=== PATIENT | female | born 1970 | race Caucasian/White ===

== ENCOUNTER 2018-11-27 09:34 | Emergency (ER) | payer BC ==
[2018-11-27] MEDS ORDERED: Sodium Chloride 0.9% 10 ML Syringe FLUSH PRN (09:50)
[2018-11-27] MEDS ORDERED: Pantoprazole 40 MG Vial IVPUSH ONE (10:09)
--- NOTE | 2018-11-27 10:16 | EDM.PDOC ---
ED HPI GENERAL MEDICAL PROBLEM - General Chief Complaint: Gastrointestinal Problem Stated Complaint: RECTAL BLEEDING BLOODY STOOLS Time Seen by Provider: 11/27/18 09:56 Source of Information: Reports: Patient History Limitations: Reports: No Limitations - History of Present Illness INITIAL COMMENTS - FREE TEXT/NARRATIVE: Patient is a 48-year-old female presents ED complaining of rectal bleeding with periumbilical abdominal pain with cramping that waxes and wanes in intensity. Started this last evening approximately 11:00. She's had approximately 8 bloody BMs since. Blood is bright red. She has a history of gastric sleeve 2 years ago that took place in [facility]. She had no postoperative complications. Has reported increased acid reflux as of recent and takes Tums usually. She's never had EGD. She had a colonoscopy several months ago which came back positive for 1 small polyp. Otherwise she has no history of ulcerative colitis, Crohn's disease, diverticuli/diverticulitis, or bleeding from her rectum in the past. She has ingested no questional or bad food. There's been no recent out of country travel. [place] not live on a farm and drink well water. She has not been around anybody sick with similar symptoms. There is no nausea/vomiting, fever, dyspnea, shortness of breath, dysuria, and/or any additional complaints. Bilateral Abdominal Pain Score (Numeric/FACES): 7 - Related Data Allergies Allergy/AdvReac Type Severity Reaction Status Date / Time No Known Allergies Allergy Verified 11/27/18 09:50 Home Meds: Home Meds Estrogens, Conjugated [Premarin] 0.9 mg PO DAILY 11/27/18 [History] Olmesartan/Amlodipin/Hcthiazid [Gbfwohp-[id number]-Nlbq 40-10-25Mg] 1 tab PO DAILY 11/27/18 [History] Propranolol [Inderal LA] 80 mg PO DAILY 11/27/18 [History] ZOLMitriptan [Zomig] 5 mg PO DAILY 11/27/18 [History] tiZANidine [Zanaflex] 4 mg PO DAILY 11/27/18 [History] traZODone HCl [Trazodone HCl] 100 mg PO DAILY 11/27/18 [History] Past Medical History Cardiovascular History: Reports: Hypertension Psychiatric History: Reports: Depression - Past Surgical History GI Surgical History: Reports: Other (See Below) Other GI Surgeries/Procedures: gastric sleeve Female Surgical History: Reports: Hysterectomy, Other (See Below) Other Female Surgeries/Procedures: laproscopic for endometriosis Social & Family History - Tobacco Use Smoking Status *Q: Current Some Day Smoker Years of Tobacco use: 1 Packs/Tins Daily: 0.1 - Caffeine Use Caffeine Use: Reports: None - Recreational Drug Use Recreational Drug Use: No ED ROS GENERAL - Review of Systems Review Of Systems: ROS reveals no pertinent complaints other than HPI. ED EXAM, GI/ABD - Physical Exam Exam: See Below Exam Limited By: No Limitations General Appearance: Alert, WD/WN, No Apparent Distress Ears: Hearing Grossly Normal Nose: Normal Inspection Throat/Mouth: Normal Voice, No Airway Compromise Head: Atraumatic, Normocephalic Neck: Normal Inspection, Supple Respiratory/Chest: No Respiratory Distress, Lungs Clear, Normal Breath Sounds, No Accessory Muscle Use, Chest Non-Tender Cardiovascular: Normal Peripheral Pulses, Regular Rate, Rhythm GI/Abdominal Exam: Normal Bowel Sounds, Soft, Non-Tender, No Organomegaly, No Distention Rectal (Female) Exam: Hemorrhoids (4 large external hemorrhoids. non thrombosed. unable to perform tad due to pressure. ) Extremities: Normal Inspection Neurological: Alert, Oriented, CN II-XII Intact, Normal Cognition Psychiatric: Normal Affect, Normal Mood Skin Exam: Warm, Dry, Intact, Normal Color Course - Vital Signs Last Recorded V/S: Last Vital Signs Temp 97.7 F 11/27/18 09:46 Pulse 65 11/27/18 09:46 Resp 16 11/27/18 09:46 BP 128/79 11/27/18 09:46 Pulse Ox 98 11/27/18 09:46 Orthostatic Blood Pressure [ 117/70 Standing] Orthostatic Blood Pressure [ 115/73 Sitting] Orthostatic Blood Pressure [ 122/70 Supine] - Orders/Labs/Meds Orders: Active Orders 24 hr Category Date Time Status Peripheral IV Care [RC] . DIRECTED Care 11/27/18 09:50 Active PATIENT RETYPE [BBK] Routine Lab 11/27/18 11:12 Ordered UA W/MICROSCOPIC [URIN] Stat Lab 11/27/18 09:49 Ordered Peripheral IV Insertion Adult [OM.PC] Routine Oth 11/27/18 09:50 Ordered Labs: Laboratory Tests 11/27/18 11/27/18 11/27/18 Range/Units 10:25 10:25 10:25 WBC 11.92 H (3.98-10.04) K/mm3 RBC 4.91 (3.98-5.22) M/mm3 Hgb 14.4 (11.2-15.7) gm/L Hct 43.1 (34.1-44.9) % MCV 87.8 (79.4-94.8) fl MCH 29.3 (25.6-32.2) pg MCHC 33.4 (32.2-35.5) g/dl RDW Std Deviation 41.1 (36.4-46.3) fL Plt Count 236 (182-369) K/mm3 MPV 9.5 (9.4-12.3) fl Neutrophils % (Manual) 73 H (40-60) % Band Neutrophils % 0 (0-10) % Lymphocytes % (Manual) 22 (20-40) % Atypical Lymphs % 0 % Monocytes % (Manual) 2 (2-10) % Eosinophils % (Manual) 2 (0.7-5.8) % Basophils % (Manual) 1 (0.1-1.2) Toxic Granulation See note Platelet Estimate Adequate Plt Morphology Comment Normal RBC Morph Comment Normal PT 10.5 (9.5-12.1) SECONDS INR 0.96 APTT 27 (24-31) SECONDS Sodium 140 (136-145) mEq/L Potassium 3.5 (3.5-5.1) mEq/L Chloride 101 (98-107) mEq/L Carbon Dioxide 29 (21-32) mEq/L Anion Gap 13.5 (5-15) BUN 19 H (7-18) mg/dL Creatinine 0.8 (0.55-1.02) mg/dL Est Cr Clr Drug Dosing 63.12 mL/min Estimated GFR (MDRD) > 60 (>60) mL/min BUN/Creatinine Ratio 23.8 H (14-18) Glucose 104 (74-106) mg/dL Calcium 9.2 (8.5-10.1) mg/dL Total Bilirubin 0.4 (0.2-1.0) mg/dL AST 20 (15-37) U/L ALT 27 (14-59) U/L Alkaline Phosphatase 81 (46-116) U/L C-Reactive Protein 0.6 (<1.0) mg/dL Total Protein 7.5 (6.4-8.2) g/dl Albumin 4.1 (3.4-5.0) g/dl Globulin 3.4 gm/dL Albumin/Globulin Ratio 1.2 (1-2) Lipase 112 (73-393) U/L Blood Type Gel Antibody Screen 11/27/18 Range/Units 10:25 WBC (3.98-10.04) K/mm3 RBC (3.98-5.22) M/mm3 Hgb (11.2-15.7) gm/L Hct (34.1-44.9) % MCV (79.4-94.8) fl MCH (25.6-32.2) pg MCHC (32.2-35.5) g/dl RDW Std Deviation (36.4-46.3) fL Plt Count (182-369) K/mm3 MPV (9.4-12.3) fl Neutrophils % (Manual) (40-60) % Band Neutrophils % (0-10) % Lymphocytes % (Manual) (20-40) % Atypical Lymphs % % Monocytes % (Manual) (2-10) % Eosinophils % (Manual) (0.7-5.8) % Basophils % (Manual) (0.1-1.2) Toxic Granulation Platelet Estimate Plt Morphology Comment RBC Morph Comment PT (9.5-12.1) SECONDS INR APTT (24-31) SECONDS Sodium (136-145) mEq/L Potassium (3.5-5.1) mEq/L Chloride (98-107) mEq/L Carbon Dioxide (21-32) mEq/L Anion Gap (5-15) BUN (7-18) mg/dL Creatinine (0.55-1.02) mg/dL Est Cr Clr Drug Dosing mL/min Estimated GFR (MDRD) (>60) mL/min BUN/Creatinine Ratio (14-18) Glucose (74-106) mg/dL Calcium (8.5-10.1) mg/dL Total Bilirubin (0.2-1.0) mg/dL AST (15-37) U/L ALT (14-59) U/L Alkaline Phosphatase (46-116) U/L C-Reactive Protein (<1.0) mg/dL Total Protein (6.4-8.2) g/dl Albumin (3.4-5.0) g/dl Globulin gm/dL Albumin/Globulin Ratio (1-2) Lipase (73-393) U/L Blood Type O POSITIVE Gel Antibody Screen Negative Meds: Medications Discontinued Medications Generic Name Dose Route Start Last Admin Trade Name Freq PRN Reason Stop Dose Admin Sodium Chloride 1,000 mls @ 250 mls/hr 11/27/18 10:30 11/27/18 10:33 Normal Saline IV 250 mls/hr ASDIRECTED RYAN Administration Pantoprazole Sodium 80 mg 11/27/18 10:09 11/27/18 10:36 Protonix Iv IVPUSH 11/27/18 10:10 80 mg BOLUS ONE Administration Sodium Chloride 10 ml 11/27/18 09:50 11/27/18 10:36 Saline Flush FLUSH 10 ml ASDIRECTED PRN Administration Keep Vein Open - Re-Assessments/Exams Free Text/Narrative Re-Assessment/Exam: IV established with NS 250mls/hr and protonix 80 mg IVP. Initial labs and studies will include: CBC, C14, CRP, LIPASE, Coag Studies, Type and screen, and UA. Stool WBC ordered. Discharge vital signs were obtained by nursing staff came back negative. On digital rectal exam patient has 4 large external hemorrhoids that are nonpainful. Nonthrombosed. Unable to perform the digital rectal exam due to pressure. If the patient has a bowel movement we will test for blood at that time. If blood present stool cultures will be obtained. Pain to the abdomen is minimal. I suspect patient has a form of colitis and/or developed a marginal ulcer along gastric sleeve borders. Labs reviewed: CBC and chemistry panel were essentially normal. BUN 19. Creatinine 0.8. Lipase normal. CRP normal. Patient has not provided a stool sample. 1157 Reassessment, patient offers no complaints this time. She has not had a BM. I have offered to obtain CT of the abdomen and pelvis to which the patient has refused. I will provide a outpatient order for stool culture. She will start taking Prozac 40 mg every day for the next 2 weeks. Unclear the cause of her recent GI bleed. She has a history of gastric sleeve and also has a history of acid reflux. There is a possibility patient may have developed an marginal gastric ulcer along sleeve border. Suspect stool would not have bright red blood from her rectum if that was the case. I suspect the bleeding is coming from the lower portion of her GI tract of unclear etiology at this point. She will see her PCP first part of this week for results of the stool studies and for reevaluation. Patient had no further questions or concerns. Departure - Departure Time of Disposition: 12:01 Disposition: Home, Self-Care 01 Condition: Good Clinical Impression: Lower gastrointestinal bleed - Discharge Information Instructions: Stool for Occult Blood Test, Gastrointestinal Bleeding Referrals: Rosa Ngo MD [Primary Care Provider] - Forms: ED Department Discharge Additional Instructions: Unclear etiology of current GI bleed. Please provide stool study to the lab in collection device provided. See pcp this coming thursday/thursday for reevaluation and results of stool studies. Stick with a bland diet until reevaluated. Push the fluids. Start taking prilosec 40mg PO everyday for the next two weeks. Refrain from any spicy foods, caffeinated beverages, eating or drinking within 4 hours ago in the bed. I suspect the EGD and colonoscopy will be required if bleeding persists. At any time he feels as if you develop any new or worsening symptoms please return back to the ED for reevaluation. - My Orders Last 24 Hours: My Active Orders 11/27/18 09:49 UA W/MICROSCOPIC [URIN] Stat 11/27/18 09:50 Peripheral IV Care [RC] . DIRECTED Peripheral IV Insertion Adult [OM.PC] Routine 11/27/18 11:12 PATIENT RETYPE [BBK] Routine - Assessment/Plan Last 24 Hours: My Active Orders 11/27/18 09:49 UA W/MICROSCOPIC [URIN] Stat 11/27/18 09:50 Peripheral IV Care [RC] . DIRECTED Peripheral IV Insertion Adult [OM.PC] Routine 11/27/18 11:12 PATIENT RETYPE [BBK] Routine
[2018-11-27] MEDS ORDERED: Sodium Chloride 0.9% 1,000 ML IV SCH (10:30)
== END 2018-11-27 12:22 | disposition home or self-care (01) ==
LOC: JD.ED 09:34
DX: K92.2 Gastrointestinal hemorrhage, unspecified (principal); F17.210 Nicotine dependence, cigarettes, uncomplicated; I10 Essential (primary) hypertension; F32.9 Major depressive disorder, single episode, unspecified; Z79.899 Other long term (current) drug therapy
CPT/HCPCS: 36415; 80053; 83690; 85007; 85027; 85610; 85730; 86140; 86850; 86900; 86901; 87046; 87427; 96361; 96374; 99283; C9113; J7040; 99284